=== PATIENT | female | born 1960 | race Caucasian/White ===

== ENCOUNTER 2024-11-02 06:34 | Day surgery (SDC) | payer OTHER, SELFPAY ==
[2024-11-02 07:53] LABS: Glucose - Point of Care 122 mg/dl (70-99)
== END 2024-11-02 09:57 | disposition home or self-care (01) ==
LOC: GI 06:34
PROVIDERS: ATTENDING PHYSICIAN Internal Medicine Gastroenterology
DX: R19.4 Change in bowel habit (principal); K64.8 Other hemorrhoids; K57.30 Diverticulosis of large intestine without perforation or abscess without bleeding; D50.9 Iron deficiency anemia, unspecified; D12.2 Benign neoplasm of ascending colon; D12.3 Benign neoplasm of transverse colon; K29.70 Gastritis, unspecified, without bleeding
CPT/HCPCS: 45385; 45380; 43239; 88305; 82962; 88342

== ENCOUNTER → 2024-12-13 12:00 | Outpatient (REF) | payer OTHER, SELFPAY | LOC: HWRAD 12:00 | PROVIDERS: ATTENDING PHYSICIAN Podiatrist Foot & Ankle Surgery; FAMILY PHYSICIAN Family Medicine | DX: S92.254S Nondisplaced fracture of navicular [scaphoid] of right foot, sequela (principal) | CPT/HCPCS: 73630 ==